=== PATIENT | male | born 1955 | race Caucasian/White ===

== ENCOUNTER 2016-05-21 22:08 | Emergency (ER) | payer OTHER ==
[~2016-05-21] VITALS: Ht 175.2 cm; Wt 99.8 kg
[~2016-05-21 22:08] MED LIST: "\\\"CHOLESTEROL MED\\\"" PO; ACCUNEB 0.0.63 MG/3 INH; ADVAIR 100/501 E1 INH; ADVAIR 100/501 E1 PO; ALBUTEROL0.09 MG/A2 INH; ALBUTEROL2.5 MG/0.5 INH; AMLODIPINE BESY1 TAB PO; ANTIVERT25 MG PO; ASPI-COR81 M1 PO; ASPIRIN81 M1 PO; ATARAX,VISTARIL50 MG PO; ATARAX25 MG PO; BENADRYL PO; BENADRYL25 M1 PO; BENADRYL25 MG PO; CIPRO500 MG PO; CLARITIN10 MG PO; DARVOCET N 1001 TAB PO; DAYPRO600 M1 PO; DELTASONE5 MG PO; DIABETA2.5 MG PO; DIABETA5 MG PO; DUONEB 3 MG/3 ML3 M1 INH; FLEXERIL10 MG PO; Glimepiride1 MG PO; HYDROCHLOROTHIA25 M1 PO; HYDROCORTISONE30 G2 T; KEFLEX500 M1 PO; KEFLEX500 MG PO; KENALOG 0.5% CR15 GM PO; LANTUS100 U/ML SC; LEVAQUIN750 M1 PO; LEVAQUIN750 MG PO; LEVOFLOXACIN500 MG PO; LIDEX 0.05% CRE15 GM T; LIDEX 0.05% GEL60 GM PO; LIDEX0.05% T; LISINOPRIL40 MG PO; LOTRISONE 0.05%1 CRE TP; MEDROL DOSEPAK4 MG PO; METFORMIN HCL500 MG PO; METFORMIN500 MG PO; MOTRIN400 MG PO; MOTRIN800 MG PO; NAPROSYN EC375 MG PO; NAPROSYN375 MG PO; NKHM; OMEPRAZOLE D/R20 MG PO; PRAVASTATIN SOD10 MG PO; PREDNICOT10 MG PO; PREDNICOT20 MG PO; PREDNISONE10 MG PO; PREDNISONE20 M1 PO; PREDNISONE20 MG PO; PRILOSEC20 MG PO; PROSTATE; PROSTATE MED; QVAR0.08 MG/AC PO; ROBAXIN750 MG PO; SINGULAIR10 MG PO; SUGAR PILL; TAMSULOSIN HCL0.4 MG PO; TOPICORT 0.25%15 G1 T; VENTOLIN 02.5 MG/3 M INH; VENTOLIN 02.5 MG/3 M PO; VIBRAMYCIN100 MG PO; VICTOZA6 MG/ML SC; VITAMIN D400 I1 PO; ZITHROMAX Z PA250 MG PO; ZYRTEC10 M2 PO
[2016-05-21] MEDS ORDERED: MEDROL DOSEPAK4 MG PO (23:20)
[2016-05-21] MEDS ORDERED: VIBRAMYCIN100 MG PO (23:20)
== END 2016-05-22 00:49 | disposition home or self-care (01) ==
LOC: ED 22:08
DX: J20.9 Acute bronchitis, unspecified (principal); Z79.82 Long term (current) use of aspirin; Z79.899 Other long term (current) drug therapy

== ENCOUNTER 2016-08-11 02:01 | Emergency (ER) | payer OTHER ==
[~2016-08-11] VITALS: Ht 177.8 cm; Wt 102.1 kg
== END 2016-08-11 03:57 | disposition home or self-care (01) ==
LOC: ED 02:01
DX: T18.128A Food in esophagus causing other injury, initial encounter (principal); J44.9 Chronic obstructive pulmonary disease, unspecified; E11.9 Type 2 diabetes mellitus without complications; N17.9 Acute kidney failure, unspecified; Z79.82 Long term (current) use of aspirin; Z79.4 Long term (current) use of insulin; X58.XXXA Exposure to other specified factors, initial encounter; Y93.89 Activity, other specified; Y92.9 Unspecified place or not applicable; Y99.9 Unspecified external cause status

== ENCOUNTER 2016-10-30 07:27 | Emergency (ER) | payer OTHER ==
[2016-10-30 07:59] LABS: BASO % 0.4 % (0.0-1.0); EOS # 0.1 10*3/uL (0.0-0.4); EOS % 1.6 % (1.0-4.0); HEMATOCRIT 49.2 % (42.0-52.0); LYMPH # 1.4 10*3/uL (1.3-4.4); LYMPH % 17.1 % (27.0-41.0); MEAN CELL VOLUME 85.3 fl (80.0-94.0); MEAN CORPUSCULAR HGB 27.7 pg (27.0-31.0); MEAN CORPUSCULAR HGB CONC 32.5 g/dl (33.0-37.0); MEAN PLATELET VOLUME 9.5 fl (9.6-12.3); MONO # 0.6 10*3/uL (0.1-1.0); MONO % 7.1 % (3.0-9.0); NEUT # 6.1 10*3/uL (2.3-7.9); NEUT % 73.3 % (47.0-73.0); PLATELET COUNT AUTOMATED 206 10*3/uL (130-400); RED BLOOD COUNT 5.77 10*6/uL (4.50-5.90); RED CELL DISTRI WIDTH 12.3 % (0-14.5); WHITE BLOOD COUNT 8.3 10*3/uL (4.8-10.8)
[2016-10-30 08:08] LABS: ACT PARTIAL THROMBO TIME 24.8 SECONDS (20.8-31.5)
[2016-10-30 08:16] LABS: BUN 12 mg/dl (7-24); CHLORIDE 99 mmol/L (98-107); CREATININE 1.05 mg/dL (0.70-1.30); POTASSIUM 4.4 mmol/L (3.5-5.1); SODIUM 136 mmol/L (136-145)
== END 2016-10-30 10:03 | disposition home or self-care (01) ==
LOC: ED 07:27
PROVIDERS: Emergency Medicine
DX: R51 Headache (principal); H53.8 Other visual disturbances; R11.0 Nausea; R73.9 Hyperglycemia, unspecified; I10 Essential (primary) hypertension; E11.9 Type 2 diabetes mellitus without complications; E78.5 Hyperlipidemia, unspecified; J44.9 Chronic obstructive pulmonary disease, unspecified; Z87.891 Personal history of nicotine dependence; Z79.82 Long term (current) use of aspirin; Z79.899 Other long term (current) drug therapy

== ENCOUNTER → 2017-01-05 | Outpatient (CLI) | payer OTHER ==
[2017-01-05 12:04] LABS: BASO % 0.2 % (0.0-1.0); EOS # 0.2 10*3/uL (0.0-0.4); EOS % 2.6 % (1.0-4.0); HEMATOCRIT 49.3 % (42.0-52.0); HEMOGLOBIN 16.3 g/dl (14.0-18.0); LYMPH % 24.7 % (27.0-41.0); MEAN CELL VOLUME 84.9 fl (80.0-94.0); MEAN CORPUSCULAR HGB 28.1 pg (27.0-31.0); MEAN CORPUSCULAR HGB CONC 33.1 g/dl (33.0-37.0); MEAN PLATELET VOLUME 9.6 fl (9.6-12.3); MONO # 0.8 10*3/uL (0.1-1.0); MONO % 9.5 % (3.0-9.0); NEUT % 62.8 % (47.0-73.0); PLATELET COUNT AUTOMATED 219 10*3/uL (130-400); RED BLOOD COUNT 5.81 10*6/uL (4.50-5.90); RED CELL DISTRI WIDTH 12.5 % (0-14.5)
[2017-01-05 12:30] LABS: ALBUMIN 3.6 gm/dl (3.1-4.5); ALKALINE PHOSPHATASE 74 U/L (45-117); BUN 15 mg/dl (7-24); CHLORIDE 101 mmol/L (98-107); CREATININE 0.99 mg/dL (0.70-1.30); SGOT/AST 49 IU/L (3-35); SGPT/ALT 67 U/L (12-78); SODIUM 139 mmol/L (136-145); TOTAL PROTEIN 7.4 gm/dL (6.4-8.2)
== END ==
LOC: LAB 11:48
PROVIDERS: Nurse Practitioner Family
DX: L40.9 Psoriasis, unspecified (principal)

== ENCOUNTER → 2017-01-23 | Outpatient (CLI) | payer OTHER ==
[2017-01-23 10:17] LABS: ALBUMIN 3.7 gm/dl (3.1-4.5); BILIRUBIN, DIRECT 0.1 mg/dL (0.0-0.2); TOTAL PROTEIN 7.4 gm/dL (6.4-8.2)
== END | disposition home or self-care (01) ==
LOC: LAB 09:24
PROVIDERS: Nurse Practitioner Family
DX: L40.9 Psoriasis, unspecified (principal)

== ENCOUNTER → 2017-02-02 | Outpatient (CLI) | payer OTHER | END | disposition home or self-care (01) | LOC: RAD 16:36 | DX: M50.322 Other cervical disc degeneration at C5-C6 level (principal); M47.892 Other spondylosis, cervical region; M12.9 Arthropathy, unspecified; I25.10 Atherosclerotic heart disease of native coronary artery without angina pectoris ==

== ENCOUNTER → 2017-02-27 | Outpatient (CLI) | payer OTHER ==
[2017-02-27 09:40] LABS: BASO % 0.4 % (0.0-1.0); EOS # 0.2 10*3/uL (0.0-0.4); HEMATOCRIT 48.2 % (42.0-52.0); HEMOGLOBIN 15.6 g/dl (14.0-18.0); LYMPH # 2.4 10*3/uL (1.3-4.4); LYMPH % 29.1 % (27.0-41.0); MEAN CELL VOLUME 84.1 fl (80.0-94.0); MEAN CORPUSCULAR HGB 27.2 pg (27.0-31.0); MEAN CORPUSCULAR HGB CONC 32.4 g/dl (33.0-37.0); MONO # 0.8 10*3/uL (0.1-1.0); MONO % 9.8 % (3.0-9.0); NEUT # 4.7 10*3/uL (2.3-7.9); NEUT % 58.1 % (47.0-73.0); PLATELET COUNT AUTOMATED 220 10*3/uL (130-400); RED BLOOD COUNT 5.73 10*6/uL (4.50-5.90); RED CELL DISTRI WIDTH 12.5 % (0-14.5); WHITE BLOOD COUNT 8.1 10*3/uL (4.8-10.8)
[2017-02-27 10:07] LABS: ALBUMIN 3.8 gm/dl (3.1-4.5); ALKALINE PHOSPHATASE 74 U/L (45-117); BILIRUBIN, DIRECT 0.1 mg/dL (0.0-0.2); BUN 15 mg/dl (7-24); CHLORIDE 101 mmol/L (98-107); CREATININE 0.92 mg/dL (0.70-1.30); POTASSIUM 4.1 mmol/L (3.5-5.1); SGOT/AST 25 IU/L (3-35); SGPT/ALT 49 U/L (12-78); SODIUM 139 mmol/L (136-145); TOTAL PROTEIN 7.3 gm/dL (6.4-8.2)
== END | disposition home or self-care (01) ==
LOC: LAB 09:15
PROVIDERS: Nurse Practitioner Family
DX: L40.8 Other psoriasis (principal)

== ENCOUNTER → 2017-12-10 | Outpatient (CLI) | payer OTHER ==
[2017-12-10 11:05] LABS: BASO % 0.2 % (0.0-1.0); EOS # 0.1 10*3/uL (0.0-0.4); EOS % 0.7 % (1.0-4.0); HEMATOCRIT 47.3 % (42.0-52.0); HEMOGLOBIN 14.5 g/dl (14.0-18.0); LYMPH # 1.7 10*3/uL (1.3-4.4); LYMPH % 15.4 % (27.0-41.0); MEAN CELL VOLUME 85.5 fl (80.0-94.0); MEAN CORPUSCULAR HGB 26.2 pg (27.0-31.0); MEAN CORPUSCULAR HGB CONC 30.7 g/dl (33.0-37.0); MEAN PLATELET VOLUME 10.3 fl (9.6-12.3); MONO # 0.8 10*3/uL (0.1-1.0); MONO % 7.6 % (3.0-9.0); NEUT # 8.1 10*3/uL (2.3-7.9); NEUT % 75.5 % (47.0-73.0); PLATELET COUNT AUTOMATED 228 10*3/uL (130-400); RED BLOOD COUNT 5.53 10*6/uL (4.50-5.90); WHITE BLOOD COUNT 10.7 10*3/uL (4.8-10.8)
[2017-12-10 11:28] LABS: ALBUMIN 3.7 gm/dl (3.1-4.5); BUN 18 mg/dl (7-24); CHLORIDE 97 mmol/L (98-107); POTASSIUM 4.2 mmol/L (3.5-5.1); SODIUM 137 mmol/L (136-145)
[2017-12-10 11:33] LABS: ALKALINE PHOSPHATASE 80 U/L (45-117); CREATININE 1.02 mg/dL (0.70-1.30); SGOT/AST 26 IU/L (3-35); SGPT/ALT 39 U/L (12-78); TOTAL PROTEIN 7.2 gm/dL (6.4-8.2)
== END | disposition home or self-care (01) ==
LOC: LAB 10:27
PROVIDERS: Nurse Practitioner Family
DX: L40.9 Psoriasis, unspecified (principal)

== ENCOUNTER 2018-02-20 13:00 | Inpatient (IN) | payer OTHER ==
[~2018-02-20] VITALS: Ht 175.2 cm; Wt 103.0 kg
--- NOTE | ~2018-02-20 | PR ---
[place], [place] PROGRESS NOTE NAME: NASIM RAY UNIT #: [id number] ROOM: 405 DOCTOR: ZOILA ARGUELLES MD BIRTHDATE: [birth year] DOS: 02/22/2018 SUBJECTIVE: Scrotal redness and swelling is still present, the patient is being treated. OBJECTIVE: VITAL SIGNS: Blood pressure 117/67, heart rate 85 beats per minute, breathing 18 times per minute, temperature 98.4 degrees Fahrenheit. GENERAL APPEARANCE: The patient is alert and oriented x 3, in no visible distress. HEENT AND NECK: Exam within normal limits. CARDIOVASCULAR SYSTEM: Heart rate is regular in rate and rhythm. S1 and S2 normally audible. LUNGS: Clear to auscultation. ABDOMEN: Soft, nontender. No obvious organomegaly. Bowel sounds are present. EXTREMITIES: Without significant cyanosis or edema. SKIN: Redness of the scrotum and inguinal skin folds. IMPRESSION: 1. The patient with chronic history of psoriasis with involvement of the scrotal skin and surrounding area being treated. 2. Cellulitis of the scrotal skin and the skin folds of the inguinal area being treated with antibiotics. 3. Fungal skin infection with amber dermatitis involving the scrotal skin being treated with Diflucan. 4. Type 2 diabetes mellitus with glucocorticoid-induced hyperglycemia being controlled with insulin. 5. Benign essential hypertension, treated and controlled. The patient on lisinopril and amlodipine. Blood pressure is being monitored. Centrilobular emphysema being treated with bronchodilators. The patient without any increased shortness of breath. ZOILA ARGUELLES MD CM:PNTRANS [id number] ZOILA ARGUELLES MD 02/22/18 1740 interface
--- NOTE | ~2018-02-20 | DS ---
[place], [place] DISCHARGE SUMMARY NAME: NASIM RAY [facility] #: [id number] UNIT #: [id number] ROOM: 405 DOCTOR: ZOILA ARGUELLES MD BIRTHDATE: [birth year] DOS: 02/23/2018 DISCHARGE DIAGNOSES: 1. Cellulitis involving the skin of the scrotum and the inguinal folds. 2. Fungal infection involving skin of the scrotum and inguinal folds. 3. Psoriasis involving the skin of the scrotum and inguinal skin folds. 4. Benign essential hypertension. 5. Type 2 diabetes mellitus. 6. History of type 2 diabetes mellitus. 7. Type 2 diabetes mellitus with severe hyperglycemia. 8. Chronic obstructive pulmonary disease, chronic respiratory failure and oxygen dependence. 9. Obesity. 10. Osteoarthritis involving both knees. HOSPITAL COURSE: The patient was admitted to [facility] when he presented with increased redness, soreness and swelling in the scrotal area. The patient was diagnosed as having psoriasis involving the skin of the scrotum and inguinal skin fold including bacterial and fungal infection. The patient started on treatment with antifungals, corticosteroids and IV antibiotics. The patient has clinically started improving and has been seen and treated by Infectious Disease specialist, Dr. Pratt. The patient has been cleared for discharge by her on Diflucan, nystatin cream and doxycycline and the patient will be seen by me on Sunday and on by Dr. Pratt. DISCHARGE DIAGNOSES: 1. Benign essential hypertension, treated and controlled. 2. Type 2 diabetes mellitus with severe hyperglycemia, treated with intravenous insulin and now blood sugars have improved. 3. Gastroesophageal reflux disease and esophagitis, asymptomatic with omeprazole. 4. Advanced centrilobular emphysema with chronic respiratory failure and oxygen dependence, was continued on treatment with bronchodilators and oxygen. 5. Obesity with a body mass index of 33.5. The patient worked with dietary. DISCHARGE MANAGEMENT: Fluconazole 200 mg daily for 10 days, doxycycline 100 mg b.i.d. for 7 days and nystatin cream for a month. The patient is already taking DuoNeb q.i.d., oxygen therapy at home, lisinopril 40 mg a day, amlodipine 10 mg a day, metformin 1000 mg b.i.d. Follow up at the office with me on Sunday and Dr. Pratt on . [place], [place] DISCHARGE SUMMARY NAME: NASIM RAY UNIT #: [id number] ROOM: 405 DOCTOR: ZOILA ARGUELLES MD BIRTHDATE: [birth year] ZOILA ARGUELLES MD CM:SAMANTHA [id number] ZOILA ARGUELLES MD 02/24/18 0017 interface
--- NOTE | ~2018-02-20 | WRIGHTHP ---
[place], [place] PATIENT HISTORY AND PHYSICAL EXAM NAME: NASIM RAY [facility] #: [id number] UNIT #: [id number] ROOM: 405 DOCTOR: ZOILA ARGUELLES MD BIRTHDATE: [birth year] DOS: HISTORY OF PRESENT ILLNESS: The patient is a 62-year-old gentleman who presented to the Emergency Department at [facility] with complaints of swelling and pain in the scrotum over the last few days. The patient also had a skin lesion over his abdomen. The patient was diagnosed as having cellulitis involving the skin of the scrotum and he also has history of psoriasis which is chronic for him, but the patient says his scrotum was not as red before. An ultrasound of the scrotum was performed, which showed left epididymal cyst, otherwise unremarkable scrotum. The patient was recommended for admission and further management and already seen by Surgery for the anterior abdominal wall lesion which was explored. No chest pain, no increasing shortness of breath, no GI or urinary symptoms. REVIEW OF SYSTEMS: RESPIRATORY: No increasing shortness of breath or wheezing. GASTROINTESTINAL: No nausea, vomiting, diarrhea or constipation. CARDIOVASCULAR: No chest pains or palpitations. FAMILY HISTORY: Noncontributory. SOCIAL HISTORY: Denies smoking cigarettes, alcohol and drug abuse. PHYSICAL EXAMINATION: GENERAL APPEARANCE: The patient is alert and oriented x 3, in no visible distress. Obesity. VITAL SIGNS: Blood pressure 100/58, breathing 18 times per minute, heart rate of 70-100 beats per minute, afebrile. HEENT AND NECK: Extraocular movements are intact. Sclerae are anicteric. Oral mucosa is moist and clean. No obvious facial weakness. Neck is supple without any lymphadenopathy. No thyromegaly. No JVD. No carotid arterial bruits. LUNGS: Clear to auscultation. No wheezing. No rhonchi. CARDIOVASCULAR SYSTEM: Heart rate is regular in rate and rhythm. S1 and S2 normally audible. No significant murmur or any other abnormal cardiac sounds. ABDOMEN: Soft, nontender. No obvious organomegaly. Bowel sounds are present. No obvious herniation. EXTREMITIES: Without significant cyanosis or edema. Warm to touch. CENTRAL NERVOUS SYSTEM: Alert and oriented x 3. Cranial nerves II-XII are intact. Speech is normal. The patient is able to move all extremities. Normal muscle strength. Deep tendon reflexes are equal on both sides. Plantars were downgoing. SKIN: Lesions over the anterior abdominal wall and the patient has redness and slight swelling of his scrotal area with redness in the inguinal skin folds. LABORATORY DATA: Normal serum electrolytes. Normal CBC. Creatinine elevated to 1.3. No leukocytosis. IMPRESSION: 1. The patient has scrotal cellulitis, to be treated with Diflucan and [place], [place] PATIENT HISTORY AND PHYSICAL EXAM [id number] UN[facility] #: [id number] ROOM: [facility] DOCTOR: ZOILA ARGUELLES MD BIRTHDATE: [birth year] antibiotics and Infectious Disease specialists are following him who considered that the patient's skin was also affected by psoriasis, although the redness in this area is new for him. Local corticosteroids and antifungal are also being applied. 2. Benign essential hypertension, treated with lisinopril and amlodipine. Blood pressure to be monitored and treated. 3. Type 2 diabetes mellitus. The patient kept on no concentrated sweet diet and continued on metformin. 4. Centrilobular emphysema. The patient to be treated with bronchodilators. ZOILA ARGUELLES MD CM:HISPHYS:PATIENT HISTORY AND PHYSICAL EXAMINATION 36 [phone] ZOILA ARGUELLES MD 02/21/18 2760 interface
--- NOTE | ~2018-02-20 | CON ---
[place], [place] REPORT OF CONSULTATION [id number] UNIT #: [id number] ROOM: 405 DOCTOR: LYN PRATT MD BIRTHDATE: [birth year] DOS: REASON FOR CONSULTATION: Scrotal cellulitis. CHIEF COMPLAINT: Scrotal swelling. HISTORY OF PRESENT ILLNESS: This is a 62-year-old male who is presenting to the Hospital for evaluation of a nonhealing abscess on his abdomen for 4 weeks. He has generalized psoriasis over his body, mostly on his lower back, bilateral hands, and bilateral lower legs, and some on lower abdomen, and there was one spot near his umbilical area, which was not getting healed. He did see a physician a week ago and recommended for an antibiotic to be used twice a day. He does not know the name of it and his symptoms did not resolve. All this time, he denied having any fever or chills, no nausea or vomiting. He apparently underwent I and D by Surgery today of that abdominal ulcer. Currently, his vitals are stable. His labs revealed no leukocytosis. His blood cultures are negative so far. He also has scrotal swelling and redness for almost 4 weeks now, and he has been having frequent scaling when he takes shower, not so much of pain in that area, no discharge, mostly itching, but not too severe. He got ultrasound of the testicular area that shows small left epididymal cyst, otherwise unremarkable. He was started on vancomycin and Zosyn as well as getting fluconazole. For his psoriasis, he gets calcipotriene, betamethasone ointment. He denies that his underwears are too tight or causing any problem. He does report sweating around his groin area. No recent trauma. PAST SURGICAL HISTORY: Significant for psoriasis, diabetes mellitus, and obesity. ALLERGIES: No known drug allergies. HOME MEDICATIONS: Noted. REVIEW OF SYSTEMS: A 12-point review of systems has been done. Pertinent negatives and positives have been included in HPI, rest are noncontributory. PHYSICAL EXAMINATION: VITAL SIGNS: Temperature 98.2, pulse rate 104, blood pressure 116/58, respiratory rate 20. GENERAL: The patient is alert, oriented x 3, not in acute distress. HEENT: Atraumatic, normocephalic. PERRLA, EOMI. RESPIRATORY: Air entry bilaterally equal. No wheeze or crackles. CARDIOVASCULAR: S1, S2 normal. No murmur, rubs, or gallops. ABDOMEN: Soft, nontender, nondistended. Bowel sounds present. Skin lesion at the mid abdomen currently status post I and D, red base. No drainage. EXTREMITIES: No pedal edema. GENITOURINARY: Scrotal redness seen. SKIN: Has wrinkling. No induration. Bilateral groin area has also redness and scaling, also at the tip of his penis has scaling, but no redness, no discharge. [place], [place] REPORT OF CONSULTATION NAME: NASIM RAY UNIT #: [id number] ROOM: 405 DOCTOR: LYN PRATT MD BIRTHDATE: [birth year] NEUROLOGIC: Grossly intact. LABORATORY DATA AND IMAGING: Reviewed, mentioned in HPI. ASSESSMENT: 1. Scrotal redness and bilateral groin redness, likely tinea cruris/atopic dermatitis/psoriasis. 2. Abdominal wall ulcer, status post I and D. PLAN: At this time, the scrotal redness is not causing cellulitis. I do not think antibiotics would help, but continuing fluconazole would be helpful. He really needs to follow up with district operations manager where a skin scraping can be checked for fungal hyphae; if not present, then he should be treated in that area also for psoriasis. Will discuss with Dr. Galvez, Surgery as well. Thank you for your consult. Please call for any questions. Lyn Pratt MD CM:CONSTR:REPORT OF CONSULTATION 1715 02/22/18 1413 interface
[2018-02-20 13:03] VITALS: BP 120/56
--- NOTE | 2018-02-20 14:38 | NUR ---
CRITICAL LAB LACTIC ACID 2.5 DR SUH NOTIFIED AND DERECK OREILLY NOTIFIED
[2018-02-20 14:41] LABS: BASO % 0.3 % (0.0-1.0); EOS # 0.1 10*3/uL (0.0-0.4); EOS % 0.9 % (1.0-4.0); HEMATOCRIT 50.9 % (42.0-52.0); HEMOGLOBIN 15.9 g/dl (14.0-18.0); LYMPH # 1.2 10*3/uL (1.3-4.4); LYMPH % 11.3 % (27.0-41.0); MEAN CELL VOLUME 83.6 fl (80.0-94.0); MEAN CORPUSCULAR HGB 26.1 pg (27.0-31.0); MEAN CORPUSCULAR HGB CONC 31.2 g/dl (33.0-37.0); MEAN PLATELET VOLUME 10.2 fl (9.6-12.3); MONO # 0.9 10*3/uL (0.1-1.0); MONO % 8.3 % (3.0-9.0); NEUT # 8.1 10*3/uL (2.3-7.9); NEUT % 78.7 % (47.0-73.0); PLATELET COUNT AUTOMATED 245 10*3/uL (130-400); RED BLOOD COUNT 6.09 10*6/uL (4.50-5.90); RED CELL DISTRI WIDTH 13.7 % (0-14.5); WHITE BLOOD COUNT 10.3 10*3/uL (4.8-10.8)
[2018-02-20 14:51] LABS: ALBUMIN 3.7 gm/dl (3.1-4.5); ALKALINE PHOSPHATASE 92 U/L (45-117); BUN 19 mg/dl (7-24); CHLORIDE 97 mmol/L (98-107); CREATININE 1.31 mg/dL (0.70-1.30); POTASSIUM 4.2 mmol/L (3.5-5.1); SGOT/AST 35 IU/L (3-35); SGPT/ALT 53 U/L (12-78); SODIUM 137 mmol/L (136-145); TOTAL PROTEIN 7.9 gm/dL (6.4-8.2)
[2018-02-20 17:00] VITALS: BP 131/70
--- NOTE | 2018-02-20 17:35 | NUR ---
Time: 1734 A 62 year old MALE admitted to under services of DR. KINDRA TOLLIVER,ZOILA Balderrama Pt. arrived via stretcher from ER. Chief complaint: ABCESS ON MID ABDOMEN AND RASH TO GROIN , SCROTUM AMD PENIS. . RAMA RED
[2018-02-20] MEDS ORDERED: VENTOLIN 02.5 MG/3 M INH (18:01)
[2018-02-20] MEDS ORDERED: LISINOPRIL40 MG PO (18:02)
[2018-02-20] MEDS ORDERED: GLUCOPHAGE1000 MG PO (18:05)
[2018-02-20] MEDS ORDERED: TACLONEX OINTME60 GM T (18:06)
[2018-02-20] MEDS ORDERED: COMBIVENT RESPIM4 GM INH (18:07)
[2018-02-20] MEDS ORDERED: LANTUS SOL100 UNIT/1 SC (18:08)
[2018-02-20] MEDS ORDERED: VITAMIN D-32000 UNI1 PO (18:09)
[2018-02-20] MEDS ORDERED: SORIATANE25 MG PO (18:09)
[2018-02-20] MEDS ORDERED: OYSTER SHELL 51 EACH PO (18:10)
[2018-02-20 18:15] VITALS: BP 138/65
--- NOTE | 2018-02-20 18:20 | NUR ---
DR HERNANDEZ CALLED FOR ORDERS FOR NEW ADMIT. SEE NEW ORDERS.
--- NOTE | 2018-02-20 19:27 | NUR ---
INFECTIOUS DISEASE CALLED FOR NEW CONSULT- MESSAGE LEFT WITH ANSWERING SERVICE.
[2018-02-20 20:00] VITALS: BP 138/56
--- NOTE | 2018-02-20 20:11 | NUR ---
DR SÁNCHEZ RETURNED PHONE CALL. STATED PATIENT IS STILL ON VANC AND ZOSYN. STATED THIS IS FINE. NO NEW ORDERS AT THIS TIME.
--- NOTE | 2018-02-20 21:50 | NUR ---
PATIENT HAD CRIT HI BLOOD SUGAR. STAT CAME BACK 463. ORDERS TO GIVE HIS 90 U LANTUS WELL 5U IV REGULAR INSULIN AND RECHECK IN 1 HOUR.
--- NOTE | 2018-02-20 22:34 | NUR ---
PATIENT MEDICATED WITN 1X DOSE 5U REG INSULIN IV ORDERD. WILL RECHECK BSG IN 1 HR
--- NOTE | 2018-02-20 22:37 | NUR ---
DRESSING PLACED TO LEFT ARM SKIN TEAR.
--- NOTE | 2018-02-20 23:35 | NUR ---
NOTIFIED DR ARGUELLES OF PATIENTS RECHECK BSG 390. ORDERS TO PUT PATIENT ON THE SLIDING SCALE ACHS.
[2018-02-21] VITALS: BP 140/54
--- NOTE | 2018-02-21 03:28 | NUR ---
PATIENTS SLEEPING OOB IN CHAIR. NO S/S OF DISTRESS NOTED. 2L NC ON. CALL LIGHT IN REACH
[2018-02-21 06:06] LABS: BASO % 0.2 % (0.0-1.0); HEMATOCRIT 48.5 % (42.0-52.0); HEMOGLOBIN 14.9 g/dl (14.0-18.0); LYMPH # 0.9 10*3/uL (1.3-4.4); LYMPH % 8.6 % (27.0-41.0); MEAN CELL VOLUME 84.1 fl (80.0-94.0); MEAN CORPUSCULAR HGB 25.8 pg (27.0-31.0); MEAN CORPUSCULAR HGB CONC 30.7 g/dl (33.0-37.0); MEAN PLATELET VOLUME 10.5 fl (9.6-12.3); MONO # 0.2 10*3/uL (0.1-1.0); MONO % 2.3 % (3.0-9.0); NEUT # 9.2 10*3/uL (2.3-7.9); NEUT % 88.4 % (47.0-73.0); PLATELET COUNT AUTOMATED 245 10*3/uL (130-400); RED BLOOD COUNT 5.77 10*6/uL (4.50-5.90); RED CELL DISTRI WIDTH 13.6 % (0-14.5); WHITE BLOOD COUNT 10.4 10*3/uL (4.8-10.8)
--- NOTE | 2018-02-21 06:25 | NUR ---
NOTIFIED DR ARGUELLES OF PATIENT NEEDING WOUND CARE ORDERS. STATED "TONYA TAKES CARE OF THAT, I DO NOT"
[2018-02-21 06:36] LABS: BUN 26 mg/dl (7-24); CHLORIDE 95 mmol/L (98-107); CREATININE 1.24 mg/dL (0.70-1.30); POTASSIUM 4.6 mmol/L (3.5-5.1); SODIUM 133 mmol/L (136-145)
--- NOTE | 2018-02-21 06:47 | NUR ---
NASIM RAY [id number] Please refer to the physician's history and physical for past medical history, comorbid conditions, and allergies. Diagnosis: CELLULITIS, SCROTUM Ayaz Score: 19,LOW OR NO RISK WOUND DESCRIPTIONS: Location of the wound: left elbow Thickness: Full Size: 0.3cm x 0.3cm x 0.1cm Tunneling: none Undermining: none Sinus Tract: none Presence of Exudate: none Amount: None Color: Yellow, red, brown Odor: None Periwound Skin Appearance: Erythema Wound edges: approximated Pain (associated with wound): none at time of assessment How does patient state this happened? pt unclear on how this happened states he just bumps into things and areas occur Location of the wound: left forearm Type of wound: skin tear Thickness: Partial Size: 0.4cm x 1.1cm x 0.1cm Tunneling: none Undermining: none Sinus Tract: none Presence of Exudate: Serosanguineous Amount: Light Color: Red Odor: None Periwound Skin Appearance: Normal Wound edges: approximated Pain (associated with wound): none at time of assessment How does patient state this happened? pt unclear on how this happened states he just bumps into things and areas occur Location of the wound: right 4th tip of toe Thickness: Partial Size: 0.1cm x 0.5cm x 0.1cm Tunneling: none Undermining: none Sinus Tract: none Presence of Exudate: Serosanguineous Amount: Light Color: Red Odor: None Periwound Skin Appearance: Normal Wound edges: approximated Pain (associated with wound): none at time of assessment How does patient state this happened? pt unclear on how this happened states he just bumps into things and areas occur Location of the wound: middle of lower abdomen Type of wound: Thickness: Full Size: 1.8cm x 1.5cm x <0.1cm Tunneling: none Undermining: none Sinus Tract: none Presence of Exudate: Amount: None Color: Brown Odor: None Periwound Skin Appearance: Erythema Wound edges: approximated Pain (associated with wound): none at time of assessment How does patient state this happened? pt stated it started about 3-4 weeks and was seen in the resident clinic and was put on antibiotics but feels the area isnt improving. Patient's bilateral groin dark red patchy rash noted. Patient does state he has discomfort at times. Mild odor noted. Patient has callus to plantar aspect of right foot. No open areas noted at time of assessment no pain at time of assessment no drainage at time of assessment. Patient has psoriasis patches all over body and states he follows up with dermatology and they have him use taclonex ointment 0.005% apply to affected areas of the body twice daily until clear. Surface the patient is resting on: Position Pro SKIN PREVENTION RECOMMENDATION: 1. Pressure redistribution support surface as appropriate 2. Elevate heels 3. Remove boots/TEDS every shift and reapply 4. Head of bed 30 degrees as tolerated 5. Assess nutrition and hydration 6. Manage moisture 7. Avoid the use of containment devices while in bed 8. Use absorptive products on surfaces limit layers of linens on bed 9. Turn and reposition every 1-2 hours in bed and every 1 hour in chair as tolerated 10. Weight shifts every 15 minutes while up in chair 11. Offloading with pillows or device to keep heels elevated off bed 12. Monitor skin at least every shift 13. Inspect under medical devices twice a day WOUND TREATMENT RECOMMENDATIONS: Imaging studies to lower abdomen to rule out abscess. Taclonex ointment 0.005% apply to affected area of the body twice daily until clear for psorasis. Partial thickness: Cleanse left elbow, left forearm and right 4th toe with nss and apply sureprep around the wound hydrogel to wound bed and cover with optifoam gentle and cover right 4th toe with bandaid. Full thickness guidelines: Cleanse lower abdomen with nss and apply sureprep around the wound therahoney to wound bed and cover with optifoam gentle. Cleanse bilateral groin with soap and water and apply nystatin powder every 8 hours and prn for soiling. wheelchair cushion when oob. Heel raiser pro boots when oob.
[2018-02-21 08:00] VITALS: BP 122/60
--- NOTE | 2018-02-21 08:30 | NUR ---
Fitting Room Maintenance Mechanic in to talk to patient. Patient states lives at home alone with his friends checking in on him. There are 2 steps in the home. Physician: Dr. Dylan Kenney Pharmacy: [facility] Home health services: none Patient's level of ADLs: INDEPENDENT Patient has working utilities: yes DME: O2 prn, portable O2 tanks, nebulizer, O2 supplier [employer] Follow-up physician's appointment after d/c: he prefers to make his own follow up appt after discharge Does patient want to access PORTAL?: no Discharge plan discussed with patient. He is sitting up in his bedside chair. He lives at home alone with his friends checking in on him. He is independent in his ADLs and ambulation. Discussed home health care services and he denies any home needs at this time. When medically stable he will be discharged to home. LINDA BLANK
--- NOTE | 2018-02-21 08:53 | NUR ---
NOTIFIED DR. POOL OF CONSULT.
[2018-02-21 12:00] VITALS: BP 116/58
[2018-02-21 16:00] VITALS: BP 116/53
[2018-02-21 20:00] VITALS: BP 100/58
[2018-02-22] VITALS: BP 116/57
[2018-02-22 08:00] VITALS: BP 117/67
[2018-02-22 12:00] VITALS: BP 119/60
[2018-02-22 16:00] VITALS: BP 117/50
[2018-02-22 20:00] VITALS: BP 110/69
[2018-02-22 20:21] VITALS: BP 100/52; BP 93/49
--- NOTE | 2018-02-22 20:40 | NUR ---
24 HR chart check completed.
--- NOTE | 2018-02-22 21:00 | NUR ---
sitting in recliner with no acute distress noted. respirations easy. lungs diminished, clear. pulse ox 93% ra, o2 present at bedside but not currently in use per pt request. dressing maintained to abd. c/o slow urine stream, flomax on hold per dr shepherd's orders. offered heel protectors per order, declined. call light within reach. no voiced complaints.
[2018-02-23] VITALS: BP 110/55
--- NOTE | 2018-02-23 00:30 | NUR ---
sleeping in recliner with no distress noted. respirations easy. vss. call light within reach.
--- NOTE | 2018-02-23 03:00 | NUR ---
CONTINUES TO SLEEP IN RECLINER, LEGS ELEVATED. CALL LIGHT WITHIN REACH.
--- NOTE | 2018-02-23 05:00 | NUR ---
PATIENT AMBULATED TO SHOWER. SELF REMOVED DRESSING. WOUND SITE CLEANSED AND DRESSED PER ORDER.
[2018-02-23 08:00] VITALS: BP 117/54
--- NOTE | 2018-02-23 09:00 | NUR ---
PATIENT UP IN ROOM. NO DISTRESS NOTED. RESPIRATIONS EASY, REGULAR. DENIES ANY SOB. PT EAGER FOR DISCHARGE. WAITING FOR TO COME IN. WILL CONTINUE TO MONITOR. VSS.
[2018-02-23 12:00] VITALS: BP 138/63
--- NOTE | 2018-02-23 15:49 | NUR ---
PATIENT RESTING QUIETLY IN ROOM. EAGER REGARDING DISCHARGE. NO VOICED COMPLAINTS.
[2018-02-23 16:00] VITALS: BP 115/57
[2018-02-23] MEDS ORDERED: FLUCONAZOLE100 MG PO (17:15)
[2018-02-23] MEDS ORDERED: DOXYCYCLINE100 M3 PO (17:15)
[2018-02-23] MEDS ORDERED: Nystatin Cream15 GM T (17:15)
--- NOTE | 2018-02-23 17:43 | NUR ---
PATIENT REFUSING DISCHARGE PHOTOS.
--- NOTE | 2018-02-23 17:44 | NUR ---
Discharge instructions reviewed with patient/family. Patient receptive and verbalizes understanding. Follow-up care arranged. Written instructions given to patient/family. WIL MEDRANO.
== END 2018-02-23 17:48 | disposition home or self-care (01) | DRG 605 ==
LOC: ED 13:00 → 4E 16:49 → EDHOLD 16:49 → 4E 17:26
PROVIDERS: Emergency Medicine; ADMIT Internal Medicine
PROC: 0HD7XZZ Extraction of Abdomen Skin, External Approach (ICD-10-PCS; principal; 2018-02-22)
DX: S31.109A Unspecified open wound of abdominal wall, unspecified quadrant without penetration into peritoneal cavity, initial encounter (principal); J96.10 Chronic respiratory failure, unspecified whether with hypoxia or hypercapnia; N49.2 Inflammatory disorders of scrotum; B35.6 Tinea cruris; L40.9 Psoriasis, unspecified; K21.0 Gastro-esophageal reflux disease with esophagitis; L98.499 Non-pressure chronic ulcer of skin of other sites with unspecified severity; E11.65 Type 2 diabetes mellitus with hyperglycemia; E66.9 Obesity, unspecified; N50.3 Cyst of epididymis; M17.0 Bilateral primary osteoarthritis of knee; I10 Essential (primary) hypertension; J43.2 Centrilobular emphysema; T38.0X5A Adverse effect of glucocorticoids and synthetic analogues, initial encounter; X58.XXXA Exposure to other specified factors, initial encounter; Y93.89 Activity, other specified; Y99.8 Other external cause status; Z99.81 Dependence on supplemental oxygen; Z68.33 Body mass index [BMI] 33.0-33.9, adult; Z87.01 Personal history of pneumonia (recurrent); Z83.3 Family history of diabetes mellitus; Y92.89 Other specified places as the place of occurrence of the external cause; Z82.3 Family history of stroke; Z79.899 Other long term (current) drug therapy; Z79.82 Long term (current) use of aspirin; Z79.84 Long term (current) use of oral hypoglycemic drugs

== ENCOUNTER → 2018-02-28 | Outpatient (CLI) | payer OTHER ==
[~2018-02-28] MED LIST changes: +ASPIRIN ADULT L81 M2 PO; +AUGMENTIN 875-875 MG PO; +COMBIVENT RESPIM4 GM INH; +DOXYCYCLINE100 M3 PO; +FLUCONAZOLE100 MG PO; +GLUCOPHAGE1000 MG PO; +KENALOG 0.1% OI15 GM T; +LANTUS SOL100 UNIT/1 SC; +LASIX40 MG PO; +METFORMIN HYDR500 MG PO; +NAPROXEN500 MG PO; +Nizoral 2%15 GM T; +Nystatin Cream15 GM T; +OYSTER SHELL 51 EACH PO; +SILVADENE,SSD C50 GM T; +SORIATANE25 MG PO; +TACLONEX OINTME60 GM T; +VITAMIN D-32000 UNI1 PO; +ZITHROMAX250 MG PO
== END | disposition home or self-care (01) ==
LOC: WOUNDCARE 09:58
DX: E11.622 Type 2 diabetes mellitus with other skin ulcer (principal); L98.491 Non-pressure chronic ulcer of skin of other sites limited to breakdown of skin; J44.9 Chronic obstructive pulmonary disease, unspecified; Z87.891 Personal history of nicotine dependence

== ENCOUNTER → 2018-03-07 | Outpatient (CLI) | payer OTHER ==
[~2018-03-07] MED LIST changes: -ASPIRIN ADULT L81 M2 PO; -AUGMENTIN 875-875 MG PO; -KENALOG 0.1% OI15 GM T; -LASIX40 MG PO; -METFORMIN HYDR500 MG PO; -NAPROXEN500 MG PO; -Nizoral 2%15 GM T; -SILVADENE,SSD C50 GM T
== END | disposition home or self-care (01) ==
LOC: WOUNDCARE 02:55
DX: E11.622 Type 2 diabetes mellitus with other skin ulcer (principal); L98.491 Non-pressure chronic ulcer of skin of other sites limited to breakdown of skin; E11.620 Type 2 diabetes mellitus with diabetic dermatitis; J44.9 Chronic obstructive pulmonary disease, unspecified; Z87.891 Personal history of nicotine dependence

== ENCOUNTER → 2018-03-11 | Outpatient (CLI) | payer OTHER ==
[2018-03-11 08:26] LABS: BASO % 0.1 % (0.0-1.0); EOS # 0.1 10*3/uL (0.0-0.4); EOS % 1.1 % (1.0-4.0); HEMATOCRIT 50.4 % (42.0-52.0); HEMOGLOBIN 15.7 g/dl (14.0-18.0); LYMPH # 1.7 10*3/uL (1.3-4.4); LYMPH % 18.8 % (27.0-41.0); MEAN CELL VOLUME 84.4 fl (80.0-94.0); MEAN CORPUSCULAR HGB 26.3 pg (27.0-31.0); MEAN CORPUSCULAR HGB CONC 31.2 g/dl (33.0-37.0); MEAN PLATELET VOLUME 10.2 fl (9.6-12.3); MONO # 0.7 10*3/uL (0.1-1.0); MONO % 8.1 % (3.0-9.0); NEUT # 6.5 10*3/uL (2.3-7.9); NEUT % 71.2 % (47.0-73.0); PLATELET COUNT AUTOMATED 213 10*3/uL (130-400); RED BLOOD COUNT 5.97 10*6/uL (4.50-5.90); RED CELL DISTRI WIDTH 13.7 % (0-14.5); WHITE BLOOD COUNT 9.2 10*3/uL (4.8-10.8)
[2018-03-11 08:59] LABS: ALBUMIN 3.8 gm/dl (3.1-4.5); ALKALINE PHOSPHATASE 80 U/L (45-117); BUN 19 mg/dl (7-24); CHLORIDE 102 mmol/L (98-107); CHOLESTEROL 188 mg/dL (<200); CREATININE 1.03 mg/dL (0.70-1.30); HDL CHOLESTEROL 38 mg/dl (40-60); LDL CHOLESTEROL 111 mg/dL (9-159); POTASSIUM 4.8 mmol/L (3.5-5.1); SGOT/AST 23 IU/L (3-35); SGPT/ALT 39 U/L (12-78); SODIUM 141 mmol/L (136-145); TOTAL PROTEIN 7.2 gm/dL (6.4-8.2); TRIGLYCERIDES 194 mg/dl (<150); VLDL CHOLESTEROL 39 mg/dL (6-40)
== END | disposition home or self-care (01) ==
LOC: LAB 08:02
PROVIDERS: Physician Assistant Surgical
DX: L40.0 Psoriasis vulgaris (principal)

== ENCOUNTER 2018-03-25 21:09 | Emergency (ER) | payer OTHER ==
[~2018-03-25] VITALS: Ht 175.2 cm; Wt 103.0 kg
--- NOTE | ~2018-03-25 | EKG ---
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
[~2018-03-25 21:09] MED LIST changes: -ZITHROMAX250 MG PO
[2018-03-25 22:12] LABS: BASO % 0.2 % (0.0-1.0); EOS # 0.1 10*3/uL (0.0-0.4); EOS % 1.3 % (1.0-4.0); HEMATOCRIT 47.8 % (42.0-52.0); HEMOGLOBIN 15.1 g/dl (14.0-18.0); LYMPH # 1.3 10*3/uL (1.3-4.4); LYMPH % 15.6 % (27.0-41.0); MEAN CELL VOLUME 84.8 fl (80.0-94.0); MEAN CORPUSCULAR HGB 26.8 pg (27.0-31.0); MEAN CORPUSCULAR HGB CONC 31.6 g/dl (33.0-37.0); MEAN PLATELET VOLUME 10.1 fl (9.6-12.3); MONO # 0.9 10*3/uL (0.1-1.0); MONO % 11.2 % (3.0-9.0); NEUT # 5.9 10*3/uL (2.3-7.9); NEUT % 70.7 % (47.0-73.0); PLATELET COUNT AUTOMATED 170 10*3/uL (130-400); RED BLOOD COUNT 5.64 10*6/uL (4.50-5.90); RED CELL DISTRI WIDTH 13.9 % (0-14.5); WHITE BLOOD COUNT 8.3 10*3/uL (4.8-10.8)
[2018-03-25 22:22] LABS: ACT PARTIAL THROMBO TIME 24.2 SECONDS (20.8-31.5)
[2018-03-25 22:35] LABS: ALBUMIN 3.6 gm/dl (3.1-4.5); ALKALINE PHOSPHATASE 97 U/L (45-117); BUN 16 mg/dl (7-24); CHLORIDE 100 mmol/L (98-107); CREATININE 1.09 mg/dL (0.70-1.30); LIPASE 156 U/L (73-393); POTASSIUM 4.1 mmol/L (3.5-5.1); SGOT/AST 30 IU/L (3-35); SGPT/ALT 45 U/L (12-78); SODIUM 136 mmol/L (136-145); TOTAL PROTEIN 7.3 gm/dL (6.4-8.2)
[2018-03-25] MEDS ORDERED: ZITHROMAX250 MG PO (23:42)
[2018-03-25] MEDS ORDERED: MEDROL DOSEPAK4 MG PO (23:42)
== END 2018-03-26 00:18 | disposition left against medical advice (07) ==
LOC: ED 21:09
PROVIDERS: Nurse Practitioner Family
DX: J44.1 Chronic obstructive pulmonary disease with (acute) exacerbation (principal); R79.89 Other specified abnormal findings of blood chemistry; E11.9 Type 2 diabetes mellitus without complications; E66.9 Obesity, unspecified; Z79.2 Long term (current) use of antibiotics; Z79.899 Other long term (current) drug therapy; Z79.84 Long term (current) use of oral hypoglycemic drugs; Z68.30 Body mass index [BMI] 30.0-30.9, adult

== ENCOUNTER → 2018-06-06 | Outpatient (CLI) | payer OTHER ==
[~2018-06-06] MED LIST changes: +ASPIRIN ADULT L81 M2 PO; +AUGMENTIN 875-875 MG PO; +KENALOG 0.1% OI15 GM T; +LASIX40 MG PO; +METFORMIN HYDR500 MG PO; +NAPROXEN500 MG PO; +Nizoral 2%15 GM T; +SILVADENE,SSD C50 GM T; +ZITHROMAX250 MG PO
[2018-06-06 10:02] LABS: BASO % 0.2 % (0.0-1.0); EOS # 0.1 10*3/uL (0.0-0.4); EOS % 0.8 % (1.0-4.0); HEMATOCRIT 47.7 % (42.0-52.0); HEMOGLOBIN 15.1 g/dl (14.0-18.0); LYMPH # 1.5 10*3/uL (1.3-4.4); LYMPH % 16.5 % (27.0-41.0); MEAN CORPUSCULAR HGB 27.6 pg (27.0-31.0); MEAN CORPUSCULAR HGB CONC 31.7 g/dl (33.0-37.0); MEAN PLATELET VOLUME 10.3 fl (9.6-12.3); MONO # 0.8 10*3/uL (0.1-1.0); NEUT # 6.7 10*3/uL (2.3-7.9); NEUT % 72.8 % (47.0-73.0); PLATELET COUNT AUTOMATED 210 10*3/uL (130-400); RED BLOOD COUNT 5.48 10*6/uL (4.50-5.90); RED CELL DISTRI WIDTH 13.3 % (0-14.5); WHITE BLOOD COUNT 9.2 10*3/uL (4.8-10.8)
[2018-06-06 10:33] LABS: ALBUMIN 3.4 gm/dl (3.1-4.5); ALKALINE PHOSPHATASE 90 U/L (45-117); BUN 20 mg/dl (7-24); CHLORIDE 99 mmol/L (98-107); POTASSIUM 4.3 mmol/L (3.5-5.1); SGOT/AST 16 IU/L (3-35); SGPT/ALT 33 U/L (12-78); SODIUM 137 mmol/L (136-145); TOTAL PROTEIN 6.9 gm/dL (6.4-8.2)
== END | disposition home or self-care (01) ==
LOC: LAB 09:20
PROVIDERS: Nurse Practitioner Family
DX: L40.9 Psoriasis, unspecified (principal)

== ENCOUNTER 2018-07-30 19:59 | Emergency (ER) | payer OTHER ==
[~2018-07-30] VITALS: Wt 103.4 kg
[~2018-07-30 19:59] MED LIST changes: -ASPIRIN ADULT L81 M2 PO; -AUGMENTIN 875-875 MG PO; -KENALOG 0.1% OI15 GM T; -LASIX40 MG PO; -METFORMIN HYDR500 MG PO; -NAPROXEN500 MG PO; -Nizoral 2%15 GM T; -SILVADENE,SSD C50 GM T
[2018-07-30] MEDS ORDERED: AUGMENTIN 875-875 MG PO (20:31)
[2018-08-08] MEDS ORDERED: NAPROXEN500 MG PO (20:03)
[2018-08-08] MEDS ORDERED: ASPIRIN ADULT L81 M2 PO (20:03)
[2018-08-08] MEDS ORDERED: HYDROCHLOROTHIA25 M1 PO (20:03)
[2018-08-08] MEDS ORDERED: Nizoral 2%15 GM T (20:05)
[2018-08-08] MEDS ORDERED: KENALOG 0.1% OI15 GM T (20:06)
[2018-08-08] MEDS ORDERED: SILVADENE,SSD C50 GM T (20:06)
[2018-08-09] MEDS ORDERED: METFORMIN HYDR500 MG PO (01:15)
[2018-08-13] MEDS ORDERED: DOXYCYCLINE100 M3 PO (08:27)
[2018-08-13] MEDS ORDERED: LASIX40 MG PO (08:27)
== END 2018-07-30 20:39 | disposition home or self-care (01) ==
LOC: ED 19:59
DX: H66.92 Otitis media, unspecified, left ear (principal); J32.9 Chronic sinusitis, unspecified; J44.9 Chronic obstructive pulmonary disease, unspecified; E66.9 Obesity, unspecified; Z68.34 Body mass index [BMI] 34.0-34.9, adult; Z79.899 Other long term (current) drug therapy

== ENCOUNTER → 2018-08-19 | Outpatient (CLI) | payer OTHER ==
[~2018-08-19] MED LIST changes: +ASPIRIN ADULT L81 M2 PO; +AUGMENTIN 875-875 MG PO; +KENALOG 0.1% OI15 GM T; +LASIX40 MG PO; +METFORMIN HYDR500 MG PO; +NAPROXEN500 MG PO; +Nizoral 2%15 GM T; +SILVADENE,SSD C50 GM T
[2018-08-19 09:42] LABS: CHLORIDE 100 mmol/L (98-107); POTASSIUM 3.8 mmol/L (3.5-5.1); SODIUM 140 mmol/L (136-145)
[2018-08-19 09:47] LABS: BUN 15 mg/dl (7-24); CREATININE 0.97 mg/dL (0.70-1.30)
== END | disposition home or self-care (01) ==
LOC: LAB 08:27
PROVIDERS: Internal Medicine
DX: N18.9 Chronic kidney disease, unspecified (principal)

== ENCOUNTER → 2018-09-02 | Outpatient (CLI) | payer OTHER ==
[2018-09-02 07:53] LABS: BASO % 0.4 % (0.0-1.0); EOS # 0.1 10*3/uL (0.0-0.4); EOS % 1.5 % (1.0-4.0); HEMATOCRIT 44.6 % (42.0-52.0); HEMOGLOBIN 13.6 g/dl (14.0-18.0); LYMPH # 1.9 10*3/uL (1.3-4.4); LYMPH % 24.9 % (27.0-41.0); MEAN CELL VOLUME 85.3 fl (80.0-94.0); MEAN CORPUSCULAR HGB CONC 30.5 g/dl (33.0-37.0); MEAN PLATELET VOLUME 10.2 fl (9.6-12.3); MONO # 0.8 10*3/uL (0.1-1.0); MONO % 9.8 % (3.0-9.0); NEUT # 4.9 10*3/uL (2.3-7.9); PLATELET COUNT AUTOMATED 227 10*3/uL (130-400); RED BLOOD COUNT 5.23 10*6/uL (4.50-5.90); RED CELL DISTRI WIDTH 13.1 % (0-14.5); WHITE BLOOD COUNT 7.8 10*3/uL (4.8-10.8)
[2018-09-02 08:12] LABS: ALBUMIN 3.4 gm/dl (3.1-4.5); BUN 9 mg/dl (7-24); CHLORIDE 102 mmol/L (98-107); CREATININE 0.97 mg/dL (0.70-1.30); POTASSIUM 3.3 mmol/L (3.5-5.1); SGOT/AST 26 IU/L (3-35); SGPT/ALT 24 U/L (12-78); SODIUM 141 mmol/L (136-145)
[2018-09-02 08:13] LABS: ALKALINE PHOSPHATASE 72 U/L (45-117)
== END | disposition home or self-care (01) ==
LOC: LAB 07:12
PROVIDERS: Nurse Practitioner Family
DX: I10 Essential (primary) hypertension (principal); L40.9 Psoriasis, unspecified

== ENCOUNTER → 2018-11-05 | Outpatient (CLI) | payer OTHER ==
[~2018-11-05] MED LIST changes: +DELTASONE20 M1 PO
[2018-11-05 09:14] LABS: BASO % 0.3 % (0.0-1.0); EOS # 0.1 10*3/uL (0.0-0.4); EOS % 0.6 % (1.0-4.0); HEMATOCRIT 44.8 % (42.0-52.0); HEMOGLOBIN 14.6 g/dl (14.0-18.0); LYMPH % 25.2 % (27.0-41.0); MEAN CELL VOLUME 83.3 fl (80.0-94.0); MEAN CORPUSCULAR HGB 27.1 pg (27.0-31.0); MEAN CORPUSCULAR HGB CONC 32.6 g/dl (33.0-37.0); MEAN PLATELET VOLUME 9.7 fl (9.6-12.3); MONO # 0.9 10*3/uL (0.1-1.0); MONO % 7.5 % (3.0-9.0); NEUT # 7.7 10*3/uL (2.3-7.9); NEUT % 65.5 % (47.0-73.0); PLATELET COUNT AUTOMATED 276 10*3/uL (130-400); RED BLOOD COUNT 5.38 10*6/uL (4.50-5.90); RED CELL DISTRI WIDTH 13.9 % (0-14.5); WHITE BLOOD COUNT 11.8 10*3/uL (4.8-10.8)
[2018-11-05 09:43] LABS: ALBUMIN 3.6 gm/dl (3.1-4.5); BUN 31 mg/dl (7-24); CHLORIDE 99 mmol/L (98-107); CHOLESTEROL 226 mg/dL (<200); CREATININE 1.22 mg/dL (0.70-1.30); HDL CHOLESTEROL 36 mg/dl (40-60); LDL CHOLESTEROL 119 mg/dL (9-159); POTASSIUM 3.8 mmol/L (3.5-5.1); SGOT/AST 16 IU/L (3-35); SGPT/ALT 22 U/L (12-78); SODIUM 140 mmol/L (136-145); TOTAL PROTEIN 7.5 gm/dL (6.4-8.2); TRIGLYCERIDES 354 mg/dl (<150); VLDL CHOLESTEROL 71 mg/dL (6-40)
[2018-11-05 09:45] LABS: ALKALINE PHOSPHATASE 87 U/L (45-117)
== END | disposition home or self-care (01) ==
LOC: LAB 08:18
PROVIDERS: Nurse Practitioner Family
DX: L40.9 Psoriasis, unspecified (principal)

== ENCOUNTER 2018-11-07 16:51 | Emergency (ER) | payer OTHER ==
[~2018-11-07] VITALS: Ht 175.2 cm; Wt 93.9 kg
[~2018-11-07 16:51] MED LIST changes: -DELTASONE20 M1 PO
[2018-11-07] MEDS ORDERED: DELTASONE20 M1 PO (19:28)
== END 2018-11-07 19:33 | disposition home or self-care (01) ==
LOC: ED 16:51
DX: J44.1 Chronic obstructive pulmonary disease with (acute) exacerbation (principal); R42 Dizziness and giddiness; E11.9 Type 2 diabetes mellitus without complications; I10 Essential (primary) hypertension; L40.9 Psoriasis, unspecified; Z79.899 Other long term (current) drug therapy; Z79.2 Long term (current) use of antibiotics; Z79.82 Long term (current) use of aspirin

== ENCOUNTER → 2018-11-19 | Outpatient (CLI) | payer OTHER ==
[~2018-11-19] MED LIST changes: +DELTASONE20 M1 PO
[2018-11-19 08:24] LABS: BUN 25 mg/dl (7-24); CREATININE 1.16 mg/dL (0.70-1.30)
== END | disposition home or self-care (01) ==
LOC: LAB 06:52
PROVIDERS: Nurse Practitioner Family
DX: L40.9 Psoriasis, unspecified (principal)

== ENCOUNTER 2018-12-23 11:56 | Emergency (ER) | payer OTHER ==
[~2018-12-23] VITALS: Ht 165.1 cm; Wt 97.5 kg
[2018-12-23] MEDS ORDERED: ELIMITE 5%60 GM T (12:08)
== END 2018-12-23 12:11 | disposition home or self-care (01) ==
LOC: ED 11:56
DX: L30.9 Dermatitis, unspecified (principal); J44.9 Chronic obstructive pulmonary disease, unspecified; E11.9 Type 2 diabetes mellitus without complications; I10 Essential (primary) hypertension; L40.9 Psoriasis, unspecified; E66.9 Obesity, unspecified; Z79.899 Other long term (current) drug therapy; Z79.82 Long term (current) use of aspirin; Z68.30 Body mass index [BMI] 30.0-30.9, adult

== ENCOUNTER 2019-01-24 14:27 | Inpatient (IN) | payer OTHER ==
[~2019-01-24] VITALS: Ht 175.3 cm; Wt 101.2 kg
[~2019-01-24 14:27] MED LIST changes: +ELIMITE 5%60 GM T
[2019-01-24 14:30] VITALS: BP 142/74
[2019-01-24 14:52] LABS: BASO % 0.2 % (0.0-1.0); EOS # 0.3 10*3/uL (0.0-0.4); EOS % 5.9 % (1.0-4.0); HEMATOCRIT 39.8 % (42.0-52.0); HEMOGLOBIN 12.6 g/dl (14.0-18.0); LYMPH # 1.2 10*3/uL (1.3-4.4); MEAN CELL VOLUME 86.3 fl (80.0-94.0); MEAN CORPUSCULAR HGB 27.3 pg (27.0-31.0); MEAN CORPUSCULAR HGB CONC 31.7 g/dl (33.0-37.0); MEAN PLATELET VOLUME 9.5 fl (9.6-12.3); MONO # 0.6 10*3/uL (0.1-1.0); MONO % 11.2 % (3.0-9.0); NEUT # 2.9 10*3/uL (2.3-7.9); NEUT % 57.9 % (47.0-73.0); PLATELET COUNT AUTOMATED 231 10*3/uL (130-400); RED BLOOD COUNT 4.61 10*6/uL (4.50-5.90); RED CELL DISTRI WIDTH 13.1 % (0-14.5); WHITE BLOOD COUNT 4.9 10*3/uL (4.8-10.8)
[2019-01-24 15:10] LABS: ALBUMIN 3.6 gm/dl (3.1-4.5); ALKALINE PHOSPHATASE 55 U/L (45-117); BUN 6 mg/dl (7-24); CHLORIDE 99 mmol/L (98-107); CREATININE 0.95 mg/dL (0.70-1.30); POTASSIUM 3.9 mmol/L (3.5-5.1); SGOT/AST 32 IU/L (3-35); SGPT/ALT 26 U/L (12-78); SODIUM 136 mmol/L (136-145); TOTAL PROTEIN 7.3 gm/dL (6.4-8.2)
[2019-01-24 15:15] LABS: ACT PARTIAL THROMBO TIME 26.4 SECONDS (20.0-32.1)
[2019-01-24 15:16] LABS: TROPONIN I 0.162 ng/ml (<0.045)
[2019-01-24 16:11] VITALS: BP 131/74
[2019-01-24 16:30] VITALS: BP 144/80
--- NOTE | 2019-01-24 16:30 | NUR ---
A 63, admitted to , under the services of VINI Trujillo MD with a diagnosis of ELEVATED TROPONIN, ABNORMAL EKG, COPD EXACERBATION. Chief complaint is SHORTNESS OF BREATH. Patient arrived via stretcher from ER. Monitor applied. Initial assessment completed. Vital signs taken and recorded. VINI TRUJILLO MD notified of admission to the unit. Orders received. See assessment for past medical history, medications and allergies. Patient and/or family oriented to unit. [address] visitation policy reviewed. Clothing/patient valuable form completed. HAYDEN MURILLO
--- NOTE | 2019-01-24 17:00 | NUR ---
DR. MÉNDEZ NOTIFIED OF ADMISSION. ORDERS RECEIVED.
--- NOTE | 2019-01-24 17:02 | NUR ---
PATIENT HAS AREAS OF PSORIASIS TO LEGS, ARMS, AND BACK. PATIENT REFUSED ADMISSION PICTURES OF WOUNDS.
--- NOTE | 2019-01-24 17:03 | NUR ---
CALL PLACED TO [facility] FOR UPDATED LIST OF PATIENT'S HOME MEDICATIONS.
[2019-01-24] MEDS ORDERED: HYDR25T PO (17:20)
[2019-01-24] MEDS ORDERED: LASIX40 MG PO (17:24)
[2019-01-24] MEDS ORDERED: PROAIR HFA8.5 GM INH (17:24)
[2019-01-24] MEDS ORDERED: KLOR-CON 1010 ME1 PO (17:28)
[2019-01-24] MEDS ORDERED: ATARAX,VISTARIL10 MG PO (17:31)
[2019-01-24] MEDS ORDERED: DIPROSONE 0.05%15 GM T (17:32)
[2019-01-24] MEDS ORDERED: CLARITIN10 MG PO (17:33)
[2019-01-24] MEDS ORDERED: NEURONTIN100 MG PO (17:33)
--- NOTE | 2019-01-24 18:06 | NUR ---
CONSULT CALLED TO DR. TELLO'S ANSWERING SERVICE. ALL INFORMATION LEFT WITH ANSWERING SERVICE. REQUESTED A CALL BACK.
--- NOTE | 2019-01-24 18:17 | NUR ---
DR. WORRELL RETURNED CALL. NO NEW ORDERS. THEY WILL SEE PATIENT IN THE MORNING.
[2019-01-24 20:00] VITALS: BP 140/57
--- NOTE | 2019-01-24 20:54 | NUR ---
ATTEMPT TO CALL AT THIS TIME FOR TROP WILL ATTEMPT AGAIN.
--- NOTE | 2019-01-24 21:00 | NUR ---
Dr Reyna notified of critical troponin of 0.156.
--- NOTE | 2019-01-24 22:30 | NUR ---
NOTIFIED OF BLOOD SUGAR RESULTS. NO NEW ORDERS RECEIVED.
[2019-01-25] VITALS: BP 144/70
[2019-01-25 08:00] VITALS: BP 136/78
--- NOTE | 2019-01-25 08:00 | NUR ---
PATIENT SITTING IN CHAIR. PATIENT STATING HE FEELS BETTER TODAY. MANUAL BP 136/78. NO C/O PAIN AT THIS TIME. CALL LIGHT WITHIN REACH.
--- NOTE | 2019-01-25 09:22 | NUR ---
SPOKE WITH DR. MÉNDEZ ABOUT DISCONTINUING CREAMS THAT PATIENT STATES HE DOES NOT TAKE AT HOME.
--- NOTE | 2019-01-25 10:15 | NUR ---
NC SET ON 5 L NC. SPO2 ON 5 L IS 98%. O2 DECREASED TO 3 L NC.
[2019-01-25 12:00] VITALS: BP 113/52
--- NOTE | 2019-01-25 13:33 | NUR ---
PATIENT SITTING UP IN CHAIR WATCHING TV. RESPIRATIONS EVEN AND UNLABORED. DIMINISHED LUNG SOUNDS THROUGHOUT. CALL LIGHT WTIHIN REACH.
[2019-01-25 16:00] VITALS: BP 114/72
[2019-01-25 20:00] VITALS: BP 119/62
--- NOTE | 2019-01-25 20:48 | NUR ---
PT STATES HE HAS A HARD TIME BRINGING SPUTUM UP. FLUTTER VALVE ORDERED PER NURSING MEASURE.
--- NOTE | 2019-01-25 20:55 | NUR ---
RESTING HR 110s-120s. PT ASYMPTMATIC. ROUNDING ON FLOOR AND INFORMED. NO NEW ORDERS REC'D.
--- NOTE | 2019-01-25 22:40 | NUR ---
Flutter instructed. Patient has great effort and is using the flutter on own.
[2019-01-26] VITALS: BP 100/49
--- NOTE | 2019-01-26 04:56 | NUR ---
24hr chart check completed
--- NOTE | 2019-01-26 07:45 | NUR ---
SITTING UP IN CHAIR. RESP-EASY AND REGULAR. EATING BREAKFAST. TOLERATED ROUTINE MED WITH NO PROBLEM. CALL LIGHT IN REACH. SEE SHIFT ASSESSMENT.
[2019-01-26 08:00] VITALS: BP 124/60
--- NOTE | 2019-01-26 10:30 | NUR ---
IV started right antecubital with #22 angiocath after 1 attempts. The IV site was prepped with Chloraprep. Heparin lock attached. Sterile dressing applied. Patient tolerated precedure well. Procedure performed according to [facility] policy & procedure. SITTING UP IN CHAIR. RESP-EASY AND REGULAR. [facility]
[2019-01-26 12:00] VITALS: BP 121/53
[2019-01-26 16:00] VITALS: BP 119/45
--- NOTE | 2019-01-26 16:20 | NUR ---
PT SITTING UP IN CHAIR. RESP-EASY AND REGULAR. NO C/O AT THIS TIME. CALL LIGHT IN REACH. SEE SHIFT ASSESSMENT.
[2019-01-26 20:00] VITALS: BP 129/69
[2019-01-27] VITALS: BP 129/59
--- NOTE | 2019-01-27 02:47 | NUR ---
PT ASLEEP SITTING UP IN CHAIR. O2 REAPPLIED AT 3L NC, PT HAD TAKEN IT OFF. PT DENIES ANY NEEDS AT THIS TIME. WILL MONITOR. CALL LIGHT IN REACH.
[2019-01-27 06:56] LABS: BASO % 0.1 % (0.0-1.0); EOS % 0.1 % (1.0-4.0); HEMATOCRIT 42.3 % (42.0-52.0); HEMOGLOBIN 13.2 g/dl (14.0-18.0); LYMPH # 1.5 10*3/uL (1.3-4.4); LYMPH % 9.6 % (27.0-41.0); MEAN CORPUSCULAR HGB 27.2 pg (27.0-31.0); MEAN CORPUSCULAR HGB CONC 31.2 g/dl (33.0-37.0); MEAN PLATELET VOLUME 9.9 fl (9.6-12.3); MONO # 0.8 10*3/uL (0.1-1.0); MONO % 5.5 % (3.0-9.0); NEUT # 12.9 10*3/uL (2.3-7.9); PLATELET COUNT AUTOMATED 318 10*3/uL (130-400); RED BLOOD COUNT 4.86 10*6/uL (4.50-5.90); WHITE BLOOD COUNT 15.3 10*3/uL (4.8-10.8)
[2019-01-27 07:20] VITALS: BP 132/58
--- NOTE | 2019-01-27 07:20 | NUR ---
ASSESSMENT COMPLETED AND DOCUMENTED. PT RESTING IN CHAIR WAITING TO GO DOWN TO [facility]. NO COMPLAINTS AT TIME OF ASSESSMENT. WILL CONTINUE TO MONITOR. HEATHER PARK
--- NOTE | 2019-01-27 07:39 | NUR ---
PT AGREES TO HAVE STRESS TEST, BUT STATES HE DOES NOT WANT ECHO TODAY. RN TRIED TO EXPLAIN NECESSITY FOR ECHO. PATIENT STATES HE AGREES TO HAVE ONE, JUST NOT TODAY. STATES HE HAS HAD MULTIPLE ECHOS IN THE PAST FEW MONTHS. AM SHIFT RN AND CARDIAC REHAB NOTIFIED. WILL NOTIFY UPON ARRIVAL.
--- NOTE | 2019-01-27 07:40 | NUR ---
PT SITTING UP IN CHAIR. RESP-EASY AND REGULAR. NONPROD COUGH NOTED. LUNGS DIMINISHED T/O. STUDENT NURSE WITH PT TODAY. CALL LIGHT IN REACH. WAITING FOR STRESS TEST THIS AM.
[2019-01-27] MEDS ORDERED: INVOKANA100 M1 PO (08:21)
[2019-01-27] MEDS ORDERED: CEFUROXIME AXE250 MG PO (08:21)
[2019-01-27] MEDS ORDERED: PREDNISONE5 MG PO (08:21)
[2019-01-27] MEDS ORDERED: CARVEDILOL3.125 MG PO (08:21)
--- NOTE | 2019-01-27 09:24 | NUR ---
PT. IS NPO FOR STRESS TEST. DID NOT EAT BREAKFAST. RESTING PEACEFULLY IN HIS CHAIR. WILL CONTINUE TO MONITOR. [facility]
--- NOTE | 2019-01-27 09:45 | NUR ---
OFF FLOOR FOR STRESS TEST VIA W/C WITH TRANSPORT
--- NOTE | 2019-01-27 10:58 | NUR ---
INFORMED CONSENT SIGNED FOR LEXISCAN STRESS TEST WITH DR. ARMSTRONG. RESTING EKG NSR, HR 72, BP 130/78. PULSE OX 95% AND BREATH SOUNDS DEMINISHED BILATERALLY. COMPLETED ONE MINUTE OF LEXISCAN PROTOCOL RECEIVING LEXISCAN 0.4MG OVER 10 SECONDS. RBBB NOTED WITH NO ST CHANGES. PT C/O SOB. LAST RECOVERY HR 91, BP 118/64. WAITING NUCLEAR SCANNING IN STABLE CONDITION.
--- NOTE | 2019-01-27 13:00 | NUR ---
RETURN TO FLOOR FROM STRESS TEST. PLEASANT, COOPERATIVE. AMBULATED TO CHAIR WITHOUT DIFFICULTY. DENIES CHEST PAIN OR PRESSURE. DENIES SOB. RESP EASY. NO S/S OF DISTRESS.
[2019-01-27 13:20] VITALS: BP 128/58
--- NOTE | 2019-01-27 13:20 | NUR ---
PT RETURNED FROM [facility]. RESTING IN CHAIR WAITING FOR LUNCH. NO COMPLAINTS AT THIS TIME. [facility]
--- NOTE | 2019-01-27 14:31 | NUR ---
CALLED DR. MÉNDEZ MADE AWARE STRESS TEST RESULTS. OK TO GO HOME. PT DOING ECHO NOW.
--- NOTE | 2019-01-27 15:37 | NUR ---
Discharge instructions reviewed with patient/family. Patient receptive and verbalizes understanding. Follow-up care arranged. Written instructions given to patient/family. HEPLOCKS REMOVED 2X2 APPLIED. MONITOR REMOVED. AMBULATORY OFF THE FLOOR FOR DISCHARGE. [facility]
== END 2019-01-27 15:37 | disposition home or self-care (01) | DRG 311 ==
LOC: ED 14:27 → EDHOLD 15:35 → 4E 15:35
PROVIDERS: Emergency Medicine; ADMIT Internal Medicine
DX: I24.8 Other forms of acute ischemic heart disease (principal); J96.20 Acute and chronic respiratory failure, unspecified whether with hypoxia or hypercapnia; J44.1 Chronic obstructive pulmonary disease with (acute) exacerbation; J44.0 Chronic obstructive pulmonary disease with (acute) lower respiratory infection; I50.32 Chronic diastolic (congestive) heart failure; J20.9 Acute bronchitis, unspecified; I35.0 Nonrheumatic aortic (valve) stenosis; E78.5 Hyperlipidemia, unspecified; E66.9 Obesity, unspecified; D72.829 Elevated white blood cell count, unspecified; E11.9 Type 2 diabetes mellitus without complications; I11.0 Hypertensive heart disease with heart failure; F51.01 Primary insomnia; F32.9 Major depressive disorder, single episode, unspecified; Z87.891 Personal history of nicotine dependence; Z82.3 Family history of stroke; Z83.3 Family history of diabetes mellitus; Z87.01 Personal history of pneumonia (recurrent); Z79.4 Long term (current) use of insulin; Z79.899 Other long term (current) drug therapy; Z79.82 Long term (current) use of aspirin; Z68.32 Body mass index [BMI] 32.0-32.9, adult

== ENCOUNTER 2019-02-02 11:09 | Emergency (ER) | payer OTHER ==
[~2019-02-02] VITALS: Ht 170.1 cm; Wt 90.7 kg
--- NOTE | ~2019-02-02 | EKG ---
[place], [place] ELECTROCARDIOGRAM REPORT NAME: NASIM RAY UNIT #: [id number] ROOM: DOCTOR: EPIPHANY DRAFT REPORT BIRTHDATE: [birth year] [facility] Test Date: 2019-02-02 Test Time: 11:13:30 Pat Name: NASIM RAY Department: Room: Gender: Family Practice Physician Assistant: : [id number] Requested By: MILENA MITCHELL Order Number: [id number] Reading MD: Destiny Payne MD Measurements Intervals [place] Rate: 107 P: 52 ME: 141 QRS: 138 QRSD: 103 T: 16 QT: 354 QTc: 473 Interpretive Statements Sinus tachycardia IRBBB Right bundle-branch block Borderline T abnormalities, inferior leads Compared to ECG 01/24/2019 20:17:16 T-wave abnormality now present Electronically Signed On 02-04-2019 15:00:58 PST by Destiny Payne MD CM:EKGRPT:ELECTROCARDIOGRAM REPORT [id number] MILENA PLATT DRAFT REPORT MILENA MITCHELL MD
[~2019-02-02 11:09] MED LIST changes: +ATARAX,VISTARIL10 MG PO; +CARVEDILOL3.125 MG PO; +CEFUROXIME AXE250 MG PO; +DIPROSONE 0.05%15 GM T; +HYDR25T PO; +INVOKANA100 M1 PO; +KLOR-CON 1010 ME1 PO; +NEURONTIN100 MG PO; +PREDNISONE5 MG PO; +PROAIR HFA8.5 GM INH
== END 2019-02-02 13:42 | disposition left against medical advice (07) ==
LOC: ED 11:09
DX: I95.9 Hypotension, unspecified (principal); J44.9 Chronic obstructive pulmonary disease, unspecified; E66.9 Obesity, unspecified; M54.2 Cervicalgia; E11.9 Type 2 diabetes mellitus without complications; I10 Essential (primary) hypertension; Z79.899 Other long term (current) drug therapy; Z79.82 Long term (current) use of aspirin; Z79.4 Long term (current) use of insulin; Z68.34 Body mass index [BMI] 34.0-34.9, adult

== ENCOUNTER 2019-04-13 17:56 | Inpatient (IN) | payer OTHER ==
[~2019-04-13] VITALS: Ht 175.3 cm; Wt 106.3 kg
[2019-04-13 18:16] VITALS: BP 117/63
[2019-04-13 18:22] LABS: BASO % 0.3 % (0.0-1.0); EOS # 0.1 10*3/uL (0.0-0.4); EOS % 0.8 % (1.0-4.0); HEMATOCRIT 36.7 % (42.0-52.0); HEMOGLOBIN 10.6 g/dl (14.0-18.0); LYMPH # 1.4 10*3/uL (1.3-4.4); LYMPH % 13.1 % (27.0-41.0); MEAN CELL VOLUME 84.2 fl (80.0-94.0); MEAN CORPUSCULAR HGB 24.3 pg (27.0-31.0); MEAN CORPUSCULAR HGB CONC 28.9 g/dl (33.0-37.0); MEAN PLATELET VOLUME 10.1 fl (9.6-12.3); MONO # 0.9 10*3/uL (0.1-1.0); NEUT # 8.2 10*3/uL (2.3-7.9); NEUT % 77.6 % (47.0-73.0); PLATELET COUNT AUTOMATED 321 10*3/uL (130-400); RED BLOOD COUNT 4.36 10*6/uL (4.50-5.90); WHITE BLOOD COUNT 10.6 10*3/uL (4.8-10.8)
[2019-04-13 18:33] LABS: ACT PARTIAL THROMBO TIME 24.5 SECONDS (20.0-32.1)
[2019-04-13 18:38] LABS: ALBUMIN 3.6 gm/dl (3.1-4.5); ALKALINE PHOSPHATASE 77 U/L (45-117); BUN 23 mg/dl (7-24); CHLORIDE 101 mmol/L (98-107); CREATININE 1.39 mg/dL (0.70-1.30); POTASSIUM 4.9 mmol/L (3.5-5.1); SGOT/AST 30 IU/L (3-35); SGPT/ALT 38 U/L (12-78); SODIUM 136 mmol/L (136-145); TOTAL PROTEIN 7.2 gm/dL (6.4-8.2)
[2019-04-13 18:45] VITALS: BP 118/58
[2019-04-13 21:02] VITALS: BP 103/58
[2019-04-14] VITALS (34 sets, daily range): BP systolic 60–117; BP diastolic 0–87
[2019-04-14 07:20] LABS: ARTERIAL BLOOD GAS PH 7.269 (7.35-7.45)
[2019-04-14 07:21] LABS: ABG BASE EXCESS -9.6 mmol/L (-2.0-2.0)
[2019-04-14] MEDS ORDERED: HYDROCHLOROTHIA25 M1 PO (11:45)
[2019-04-14] MEDS ORDERED: Meclizine25 MG PO (11:51)
[2019-04-15] VITALS: BP 95/55
[2019-04-15 04:00] VITALS: BP 109/59
[2019-04-15 05:29] LABS: ALBUMIN 3.2 gm/dl (3.1-4.5); CREATININE 3.44 mg/dL (0.70-1.30); TOTAL PROTEIN 6.5 gm/dL (6.4-8.2)
[2019-04-15 07:27] LABS: HEMATOCRIT 33.3 % (42.0-52.0); HEMOGLOBIN 9.8 g/dl (14.0-18.0); MEAN CELL VOLUME 82.2 fl (80.0-94.0); MEAN CORPUSCULAR HGB 24.2 pg (27.0-31.0); MEAN CORPUSCULAR HGB CONC 29.4 g/dl (33.0-37.0); MEAN PLATELET VOLUME 11.1 fl (9.6-12.3); NUCLEATED RED BLOOD CELL 0.1 % (0.0-0.0); RED BLOOD COUNT 4.05 10*6/uL (4.50-5.90); RED CELL DISTRI WIDTH 14.4 % (0-14.5); WHITE BLOOD COUNT 15.8 10*3/uL (4.8-10.8)
[2019-04-15 07:32] LABS: PLATELET COUNT AUTOMATED 206 10*3/uL (130-400)
[2019-04-15 07:39] LABS: ALBUMIN 3.1 gm/dl (3.1-4.5); CREATININE 3.38 mg/dL (0.70-1.30); TOTAL PROTEIN 6.4 gm/dL (6.4-8.2)
[2019-04-15 07:43] LABS: BURR CELLS FEW; OVALOCYTES FEW; POLYCHROMASIA SLIGHT; TOTAL CELLS COUNTED 100 #CELLS
[2019-04-15 07:44] LABS: PLATELET SUFFICIENCY NORMAL (NORMAL)
[2019-04-15 07:52] LABS: POTASSIUM 6.4 mmol/L (3.5-5.1)
[2019-04-15 08:00] VITALS: BP 119/51
[2019-04-15 10:11] LABS: URINE CHLORIDE, RANDOM < 10 mmol/L
[2019-04-15 11:06] LABS: BACTERIA 3+
[2019-04-15 11:09] LABS: BILIRUBIN NEGATIVE (NEGATIVE); BLOOD 2+ (NEGATIVE); CLARITY CLOUDY (CLEAR); COLOR YELLOW (YELLOW); GLUCOSE NEGATIVE (NEGATIVE); KETONE NEGATIVE (NEGATIVE); SPECIFIC GRAVITY 1.025 (1.005-1.030); UROBILINOGEN 0.2 E.U./dl (0.2-1.0)
[2019-04-15 11:10] LABS: CALCIUM OXALATE CRYSTALS 2+; COARSE GRANULAR CAST 15-20; LEUKO ESTERASE NEGATIVE (NEGATIVE); NITRITE NEGATIVE (NEGATIVE)
[2019-04-15 11:11] LABS: EPITHELIAL CELLS 15-20
[2019-04-15 12:00] VITALS: BP 112/56
[2019-04-15 16:00] VITALS: BP 100/48
[2019-04-15 17:57] LABS: CREATININE 3.38 mg/dL (0.70-1.30)
[2019-04-15 17:58] LABS: POTASSIUM 6.9 mmol/L (3.5-5.1)
[2019-04-15 20:00] VITALS: BP 106/64
[2019-04-15 21:51] LABS: ALBUMIN 3.5 gm/dl (3.1-4.5); CREATININE 3.3 mg/dL (0.70-1.30)
[2019-04-15 22:07] LABS: POTASSIUM 6.5 mmol/L (3.5-5.1)
[2019-04-15 23:57] LABS: CREATININE 3.09 mg/dL (0.70-1.30)
[2019-04-16] VITALS (7 sets, daily range): BP systolic 95–122; BP diastolic 48–70
[2019-04-16 00:02] LABS: POTASSIUM 6.6 mmol/L (3.5-5.1)
[2019-04-16 04:28] LABS: CREATININE 3.02 mg/dL (0.70-1.30)
[2019-04-16 04:32] LABS: POTASSIUM 6.2 mmol/L (3.5-5.1)
[2019-04-16 07:07] LABS: HEMATOCRIT 35.3 % (42.0-52.0); HEMOGLOBIN 10.2 g/dl (14.0-18.0); MEAN CELL VOLUME 82.1 fl (80.0-94.0); MEAN CORPUSCULAR HGB 23.7 pg (27.0-31.0); MEAN CORPUSCULAR HGB CONC 28.9 g/dl (33.0-37.0); MEAN PLATELET VOLUME 10.8 fl (9.6-12.3); NUCLEATED RED BLOOD CELL 0.2 % (0.0-0.0); PLATELET COUNT AUTOMATED 207 10*3/uL (130-400); RED CELL DISTRI WIDTH 14.4 % (0-14.5); WHITE BLOOD COUNT 17.7 10*3/uL (4.8-10.8)
[2019-04-16 07:26] LABS: POTASSIUM 5.9 mmol/L (3.5-5.1)
[2019-04-16 07:47] LABS: OVALOCYTES FEW; PLATELET SUFFICIENCY NORMAL (NORMAL); POLYCHROMASIA SLIGHT; TOTAL CELLS COUNTED 100 #CELLS
[2019-04-16 07:54] LABS: ALBUMIN 3.4 gm/dl (3.1-4.5); CREATININE 2.88 mg/dL (0.70-1.30); PHOSPHOROUS 7.2 mg/dL (2.5-4.9); TOTAL PROTEIN 6.7 gm/dL (6.4-8.2)
[2019-04-16 10:11] LABS: HEPATITIS B SURFACE AG Negative (Negative); HEPATITIS C VIRUS ANTIBODY <0.1 s/co (0.0-0.9)
[2019-04-16 14:48] LABS: CREATININE 2.62 mg/dL (0.70-1.30); POTASSIUM 5.2 mmol/L (3.5-5.1)
[2019-04-17] VITALS (10 sets, daily range): BP systolic 93–126; BP diastolic 52–74
[2019-04-17 05:29] LABS: ALBUMIN 3.2 gm/dl (3.1-4.5); CREATININE 1.83 mg/dL (0.70-1.30); POTASSIUM 5.2 mmol/L (3.5-5.1); TOTAL PROTEIN 6.4 gm/dL (6.4-8.2)
[2019-04-17 06:12] LABS: BASO % 0.1 % (0.0-1.0); EOS % 0.1 % (1.0-4.0); HEMATOCRIT 34.5 % (42.0-52.0); HEMOGLOBIN 10.1 g/dl (14.0-18.0); LYMPH # 0.5 10*3/uL (1.3-4.4); MEAN CELL VOLUME 81.9 fl (80.0-94.0); MEAN CORPUSCULAR HGB CONC 29.3 g/dl (33.0-37.0); MEAN PLATELET VOLUME 10.6 fl (9.6-12.3); MONO # 1.1 10*3/uL (0.1-1.0); NEUT # 11.6 10*3/uL (2.3-7.9); PLATELET COUNT AUTOMATED 203 10*3/uL (130-400); RED BLOOD COUNT 4.21 10*6/uL (4.50-5.90); RED CELL DISTRI WIDTH 14.4 % (0-14.5); WHITE BLOOD COUNT 13.3 10*3/uL (4.8-10.8)
[2019-04-18] VITALS: BP 130/66
[2019-04-18 04:00] VITALS: BP 119/58
[2019-04-18 08:00] VITALS: BP 116/61
[2019-04-18 12:00] VITALS: BP 115/57
[2019-04-18 13:25] LABS: ALBUMIN 3.1 gm/dl (3.1-4.5); CHLORIDE 101 mmol/L (98-107); CREATININE 1.25 mg/dL (0.70-1.30); POTASSIUM 4.7 mmol/L (3.5-5.1); SGOT/AST 192 IU/L (3-35); SODIUM 138 mmol/L (136-145); TOTAL PROTEIN 6.3 gm/dL (6.4-8.2)
[2019-04-18 13:31] LABS: ALKALINE PHOSPHATASE 77 U/L (45-117); BUN 56 mg/dl (7-24); SGPT/ALT 1225 U/L (12-78)
[2019-04-18 15:26] VITALS: BP 115/55
[2019-04-18 20:00] VITALS: BP 128/63
[2019-04-19] VITALS: BP 123/55
[2019-04-19 04:00] VITALS: BP 118/60
[2019-04-19 06:11] LABS: HEMATOCRIT 36.6 % (42.0-52.0); HEMOGLOBIN 10.4 g/dl (14.0-18.0); MEAN CELL VOLUME 83.4 fl (80.0-94.0); MEAN CORPUSCULAR HGB 23.7 pg (27.0-31.0); MEAN CORPUSCULAR HGB CONC 28.4 g/dl (33.0-37.0); MEAN PLATELET VOLUME 10.5 fl (9.6-12.3); PLATELET COUNT AUTOMATED 216 10*3/uL (130-400); RED BLOOD COUNT 4.39 10*6/uL (4.50-5.90); RED CELL DISTRI WIDTH 14.2 % (0-14.5); WHITE BLOOD COUNT 12.5 10*3/uL (4.8-10.8)
[2019-04-19 06:41] LABS: ALKALINE PHOSPHATASE 75 U/L (45-117); BUN 48 mg/dl (7-24); CHLORIDE 101 mmol/L (98-107); POTASSIUM 4.6 mmol/L (3.5-5.1); SGOT/AST 115 IU/L (3-35); SGPT/ALT 912 U/L (12-78); SODIUM 141 mmol/L (136-145)
[2019-04-19 07:21] LABS: OVALOCYTES FEW; PLATELET SUFFICIENCY NORMAL (NORMAL); POLYCHROMASIA SLIGHT; TOTAL CELLS COUNTED 100 #CELLS
[2019-04-19 08:00] VITALS: BP 134/55
[2019-04-19 12:00] VITALS: BP 126/55
[2019-04-19 16:00] VITALS: BP 126/55
[2019-04-19 20:00] VITALS: BP 136/57
[2019-04-20] VITALS (10 sets, daily range): BP systolic 98–124; BP diastolic 42–78
[2019-04-20 20:27] LABS: CHLORIDE 94 mmol/L (98-107); CREATININE 0.91 mg/dL (0.70-1.30); POTASSIUM 4.4 mmol/L (3.5-5.1); SODIUM 137 mmol/L (136-145)
[2019-04-20 20:29] LABS: BUN 28 mg/dl (7-24)
[2019-04-21] VITALS: BP 115/45
[2019-04-21 08:00] VITALS: BP 126/62
[2019-04-21 12:00] VITALS: BP 118/50
[2019-04-21 16:00] VITALS: BP 104/45
[2019-04-21 20:00] VITALS: BP 114/52
[2019-04-22] VITALS: BP 101/50
[2019-04-22 08:00] VITALS: BP 106/48
[2019-04-22] MEDS ORDERED: ELIQUIS5 M1 PO (08:34)
[2019-04-22] MEDS ORDERED: Meclizine25 MG PO (08:34)
[2019-04-22] MEDS ORDERED: METOPROLOL SUCC50 M1 PO (08:34)
[2019-04-22] MEDS ORDERED: LASIX40 MG PO (08:36)
[2019-04-22 12:00] VITALS: BP 102/44
== END 2019-04-22 13:16 | disposition home or self-care (01) | DRG 871 ==
LOC: ED 17:56 → ICCU 23:45 → 4E 23:45 → EDHOLD 23:45 → ICCU 04-14 00:02 → 4E 04-19 18:30
PROVIDERS: Emergency Medicine; Internal Medicine Cardiovascular Disease; Internal Medicine Critical Care Medicine; Internal Medicine Nephrology; Student in an Organized Health Care Education/Training Program; ADMIT Internal Medicine
PROC: B24BZZ4 Ultrasonography of Heart with Aorta, Transesophageal (ICD-10-PCS; principal; 2019-04-17)
PROC: 5A2204Z Restoration of Cardiac Rhythm, Single (ICD-10-PCS; principal; 2019-04-17)
DX: A41.9 Sepsis, unspecified organism (principal); N17.0 Acute kidney failure with tubular necrosis; K72.00 Acute and subacute hepatic failure without coma; J96.01 Acute respiratory failure with hypoxia; I50.43 Acute on chronic combined systolic (congestive) and diastolic (congestive) heart failure; I21.A1 Myocardial infarction type 2; J44.1 Chronic obstructive pulmonary disease with (acute) exacerbation; I48.21 Permanent atrial fibrillation; I13.0 Hypertensive heart and chronic kidney disease with heart failure and stage 1 through stage 4 chronic kidney disease, or unspecified chronic kidney disease; I48.92 Unspecified atrial flutter; J44.0 Chronic obstructive pulmonary disease with (acute) lower respiratory infection; E87.2 Acidosis; R18.8 Other ascites; K21.9 Gastro-esophageal reflux disease without esophagitis; I48.0 Paroxysmal atrial fibrillation; N18.9 Chronic kidney disease, unspecified; E11.22 Type 2 diabetes mellitus with diabetic chronic kidney disease; F41.1 Generalized anxiety disorder; E66.01 Morbid (severe) obesity due to excess calories; J20.9 Acute bronchitis, unspecified; N40.1 Benign prostatic hyperplasia with lower urinary tract symptoms; R33.8 Other retention of urine; K80.20 Calculus of gallbladder without cholecystitis without obstruction; E11.65 Type 2 diabetes mellitus with hyperglycemia; E83.39 Other disorders of phosphorus metabolism; D64.9 Anemia, unspecified; E83.51 Hypocalcemia; F32.9 Major depressive disorder, single episode, unspecified; I25.10 Atherosclerotic heart disease of native coronary artery without angina pectoris; I35.2 Nonrheumatic aortic (valve) stenosis with insufficiency; R62.7 Adult failure to thrive; K76.0 Fatty (change of) liver, not elsewhere classified; R65.20 Severe sepsis without septic shock; L40.9 Psoriasis, unspecified; E78.5 Hyperlipidemia, unspecified; E87.5 Hyperkalemia; Z87.01 Personal history of pneumonia (recurrent); Z83.3 Family history of diabetes mellitus; Z82.3 Family history of stroke; Z79.4 Long term (current) use of insulin; I25.2 Old myocardial infarction; Z82.5 Family history of asthma and other chronic lower respiratory diseases; Z87.891 Personal history of nicotine dependence; Z79.899 Other long term (current) drug therapy; Z79.82 Long term (current) use of aspirin; Z68.34 Body mass index [BMI] 34.0-34.9, adult

== ENCOUNTER 2019-05-19 14:05 | Emergency (ER) | payer OTHER ==
[~2019-05-19] VITALS: Ht 175.2 cm; Wt 104.3 kg
[~2019-05-19 14:05] MED LIST changes: +ELIQUIS5 M1 PO; +METOPROLOL SUCC50 M1 PO; +Meclizine25 MG PO
[2019-05-19 14:33] LABS: BASO % 0.1 % (0.0-1.0); EOS # 0.1 10*3/uL (0.0-0.4); EOS % 0.9 % (1.0-4.0); HEMATOCRIT 37.2 % (42.0-52.0); HEMOGLOBIN 10.3 g/dl (14.0-18.0); LYMPH # 1.1 10*3/uL (1.3-4.4); LYMPH % 12.6 % (27.0-41.0); MEAN CELL VOLUME 85.5 fl (80.0-94.0); MEAN CORPUSCULAR HGB 23.7 pg (27.0-31.0); MEAN CORPUSCULAR HGB CONC 27.7 g/dl (33.0-37.0); MEAN PLATELET VOLUME 9.9 fl (9.6-12.3); MONO # 0.7 10*3/uL (0.1-1.0); MONO % 8.2 % (3.0-9.0); NEUT # 6.9 10*3/uL (2.3-7.9); NEUT % 77.6 % (47.0-73.0); PLATELET COUNT AUTOMATED 237 10*3/uL (130-400); RED BLOOD COUNT 4.35 10*6/uL (4.50-5.90); RED CELL DISTRI WIDTH 15.6 % (0-14.5); WHITE BLOOD COUNT 8.9 10*3/uL (4.8-10.8)
[2019-05-19 14:43] LABS: ACT PARTIAL THROMBO TIME 26.7 SECONDS (20.0-32.1); INTERNATIONAL NORM RATIO 1.1 (2.0-3.5)
[2019-05-19 14:49] LABS: ALBUMIN 3.1 gm/dl (3.1-4.5); ALKALINE PHOSPHATASE 88 U/L (45-117); BUN 10 mg/dl (7-24); CHLORIDE 98 mmol/L (98-107); CREATININE 1.09 mg/dL (0.70-1.30); POTASSIUM 3.6 mmol/L (3.5-5.1); SGOT/AST 14 IU/L (3-35); SGPT/ALT 15 U/L (12-78); SODIUM 138 mmol/L (136-145); TOTAL PROTEIN 7.1 gm/dL (6.4-8.2)
[2019-05-19 14:51] LABS: TROPONIN I 0.104 ng/ml (<0.045)
== END 2019-05-19 19:36 | disposition expired ==
LOC: ED 14:05
PROVIDERS: Emergency Medicine
DX: I46.9 Cardiac arrest, cause unspecified (principal); I50.9 Heart failure, unspecified; I48.91 Unspecified atrial fibrillation; J44.9 Chronic obstructive pulmonary disease, unspecified; E11.9 Type 2 diabetes mellitus without complications; E78.5 Hyperlipidemia, unspecified; E66.9 Obesity, unspecified; Z79.899 Other long term (current) drug therapy; Z79.4 Long term (current) use of insulin; Z68.34 Body mass index [BMI] 34.0-34.9, adult